=== PATIENT | female | born 1935 | race Caucasian/White ===

== ENCOUNTER 2020-05-30 16:06 | Inpatient (IN) | payer MEDICARE, OTHER ==
[~2020-05-30] VITALS: Ht 154.9 cm; Wt 54.4 kg
[~2020-05-30 16:06] MED LIST: KEFLEX500 MG PO; PROLIA INJ60 MG/1 ML SC; ZITHROMAX250 MG PO
[2020-05-30 17:38] LABS: HEMOGLOBIN 10.6 gm/dl (12.3-15.3); RED BLOOD COUNT 3.68 M/UL (4.00-5.10); WHITE BLOOD COUNT 9.1 K/UL (4.5-11.0)
[2020-05-31 04:34] LABS: HEMOGLOBIN 10.7 gm/dl (12.3-15.3); RED BLOOD COUNT 3.67 M/UL (4.00-5.10)
[2020-05-31 04:40] LABS: WHITE BLOOD COUNT 6.7 K/UL (4.5-11.0)
[2020-05-31 04:51] LABS: BUN/CREATININE RATIO 26 (0-10)
[2020-05-31] MEDS ORDERED: DIGOXIN125 MCG PO (13:06)
[2020-05-31] MEDS ORDERED: WARFARIN SODIUM3 MG PO (13:07)
[2020-05-31] MEDS ORDERED: LASIX40 MG PO (13:07)
[2020-05-31] MEDS ORDERED: CATAPRES0.1 MG PO (13:07)
[2020-05-31] MEDS ORDERED: K-DUR TAB 20 M20 MEQ PO (13:08)
[2020-05-31] MEDS ORDERED: ALDACTONE25 MG PO (13:08)
[2020-05-31] MEDS ORDERED: ZOCOR40 MG PO (13:09)
--- NOTE | 2020-05-31 19:19 | NUR ---
during shift report was told there was urgent order to give plasma that was put in 05/30/20 at 1830. I called lab and was told they do not have the plasma due to the holiday and they would let me know when it was available. @ 1939 lab called and said that they had one that was to be given to another patient but could now be given to this patient. I will get consent signed and will go to poultry picker the plasma.
[2020-06-01 05:26] LABS: HEMOGLOBIN 10.5 gm/dl (12.3-15.3); RED BLOOD COUNT 3.67 M/UL (4.00-5.10)
[2020-06-01 05:30] LABS: WHITE BLOOD COUNT 10.8 K/UL (4.5-11.0)
[2020-06-01 05:47] LABS: BUN/CREATININE RATIO 29 (0-10)
[2020-06-02 06:58] LABS: HEMOGLOBIN 10.6 gm/dl (12.3-15.3); RED BLOOD COUNT 3.7 M/UL (4.00-5.10); WHITE BLOOD COUNT 8.9 K/UL (4.5-11.0)
[2020-06-02 07:38] LABS: BUN/CREATININE RATIO 35 (0-10)
[2020-06-03 01:52] LABS: HEMOGLOBIN 10.2 gm/dl (12.3-15.3); RED BLOOD COUNT 3.54 M/UL (4.00-5.10); WHITE BLOOD COUNT 8.2 K/UL (4.5-11.0)
[2020-06-03 02:15] LABS: BUN/CREATININE RATIO 40 (0-10)
[2020-06-04 05:38] LABS: HEMOGLOBIN 9.9 gm/dl (12.3-15.3); RED BLOOD COUNT 3.42 M/UL (4.00-5.10); WHITE BLOOD COUNT 8.5 K/UL (4.5-11.0)
[2020-06-04 05:53] LABS: BUN/CREATININE RATIO 35 (0-10)
[2020-06-05 06:40] LABS: BUN/CREATININE RATIO 37 (0-10); HEMOGLOBIN 11.6 gm/dl (12.3-15.3); WHITE BLOOD COUNT 9.4 K/UL (4.5-11.0)
[2020-06-05 07:13] LABS: RED BLOOD COUNT 4.05 M/UL (4.00-5.10)
--- NOTE | 2020-06-06 00:45 | NUR ---
PTT ON PT WAS A TIMED STUDY PUT IN FOR 06/06/20 @ 0015 PER [employer] [employer]. THE MEDICATION WAS TO BE EVALUATED AND CHARTED ON BY 0030. AT 0047 I CALLED LAB TO SEE IF THE LAB HAD BEEN DRAWN AND I JUST COULDN'T SEE IF. THEY VERIFIED THAT IT HAD NOT BEEN DRAWN. I EXPLAINED THAT IT WAS SENT STAT AND TIMED. THIS DETERMINES HOW MUCH MEDICATION THE PT IS TO BE GIVEN. HE SAID THAT HE WOULD SEND THEM NOW TO BE DRAWN. THIS IS A ERROR AND PLACES THE PATIENT AT RISK!
[2020-06-06 01:32] LABS: BUN/CREATININE RATIO 39 (0-10)
[2020-06-06] MEDS ORDERED: WARFARIN SODIUM5 MG PO (11:40)
[2020-06-06] MEDS ORDERED: FEOSOL325 MG PO (11:58)
== END 2020-06-06 13:56 | disposition home health service (06) | DRG 177 ==
LOC: ER1 16:06 → ZEROF 18:46 → MED SURG 4 18:46
PROVIDERS: Internal Medicine Infectious Disease; Preventive Medicine Occupational Medicine; ADMIT Internal Medicine
PROC: 8E0ZXY6 Isolation (ICD-10-PCS; principal; 2020-05-30)
PROC: XW033E5 Introduction of Remdesivir Anti-infective into Peripheral Vein, Percutaneous Approach, New Technology Group 5 (ICD-10-PCS; 2020-05-30)
PROC: XW13325 Transfusion of Convalescent Plasma (Nonautologous) into Peripheral Vein, Percutaneous Approach, New Technology Group 5 (ICD-10-PCS; 2020-05-31)
DX: U07.1 COVID-19 (principal); J12.82 Pneumonia due to coronavirus disease 2019; J96.91 Respiratory failure, unspecified with hypoxia; I50.22 Chronic systolic (congestive) heart failure; E78.5 Hyperlipidemia, unspecified; Z95.4 Presence of other heart-valve replacement; Z95.0 Presence of cardiac pacemaker; Z88.0 Allergy status to penicillin; I11.0 Hypertensive heart disease with heart failure; R79.1 Abnormal coagulation profile
CPT/HCPCS: 36415; 71045; 80048; 80053; 81001; 82550; 82553; 82728; 83540; 83550; 83605; 83690; 83735; 83874; 83880; 84443; 84484; 85007; 85025; 85027; 85610; 85652; 85730; 86140; 86900; 86901; 86927; 87086; 87635; 96365; 96366; 96375; 96376; 99285; J1100; J1644; J2185; J7030